=== PATIENT | male | born 1965 | race Caucasian/White ===

== ENCOUNTER 2023-09-28 00:59 | Emergency (ER) | payer SELFPAY ==
[~2023-09-28] VITALS: Ht 177.8 cm; Wt 70.0 kg
[2023-09-28 01:01] VITALS: BP 124/86; TEMP 98.5
[2023-09-28] MEDS ORDERED: IPRATROPIUM BROMIDE (0.02%) 0.5MG/2.5ML NEB HHN STA (01:13)
[2023-09-28] MEDS ORDERED: PREDNISONE 20MG TABLET PO STA (01:13)
[2023-09-28] MEDS ORDERED: ALBUTEROL (0.083%) 2.5MG/3ML NEB HHN STA (01:13)
[2023-09-28 01:49] VITALS: PULSE 112; RESP 22; O2SAT 96
[2023-09-28 02:30] LABS: BASOPHILS % 1.1 % (0.0-2.0); EOSINOPHILS % 12.6 % (0.0-5.0); HEMATOCRIT. 36.8 % (42.0-52.0); HEMOGLOBIN. 12.2 g/dL (14.0-18.0); LYMPHOCYTES % 18.8 % (20.0-50.0); MEAN CORPUSCULAR HGB CONC 33.1 g/dL (31.0-37.0); MEAN CORPUSCULAR VOLUME 84.5 fL (80.0-94.0); MEAN PLATELET VOLUME 7.8 fl (7.4-10.4); MONOCYTES % 9.4 % (2.0-8.0); NEUTROPHILS % 58.1 % (40.0-76.0); PLATELET 337 x1000/uL (130-400); RED BLOOD CELL COUNT 4.35 mill/uL (4.7-6.1); RED CELL DISTRIBUTION WIDTH 15.3 % (11.6-14.6)
[2023-09-28 02:48] LABS: ALANINE AMINOTRANSFERASE 26 IU/L (10-49); ALBUMIN 3.4 g/dL (3.2-4.8); ASPARTATE AMINOTRANSFERASE 27 IU/L (<34); BILIRUBIN TOTAL 0.7 mg/dL (0.1-1.0); CALCIUM 8.2 mg/dL (8.7-10.4); CARBON DIOXIDE 31 mEq/L (21-32); CHLORIDE 105 mEq/L (98-107); CREATININE 0.5 mg/dL (0.6-1.3); GLUCOSE 106 mg/dL (70-105); POTASSIUM 3.8 mEq/L (3.5-5.1); PROTEIN TOTAL 6.7 g/dL (6.0-8.3); SODIUM 137 mEq/L (136-145); TROPONIN I HIGH SENSITIVITY 32 ng/L (3.0-53); UREA NITROGEN BLOOD 11 mg/dL (9-23)
[2023-09-28] MEDS ORDERED: AZITHROMYCIN 500 MG TABLET PO NR (04:45)
[2023-09-28 04:51] LABS: TROPONIN I HIGH SENSITIVITY 35 ng/L (3.0-53)
[2023-09-28] MEDS ORDERED: AZIT250T12 MT (06:01)
[2023-09-28] MEDS ORDERED: P50 MT (06:01)
[2023-09-28] MEDS ORDERED: ALBU6.7H15 INH (06:01)
== END 2023-09-28 06:33 | disposition home or self-care (01) ==
LOC: ER 01:07
DX: J18.9 Pneumonia, unspecified organism (principal); F17.200 Nicotine dependence, unspecified, uncomplicated; Z20.822 Contact with and (suspected) exposure to COVID-19
CPT/HCPCS: 94640; 80053; 83880; 85025; 84484; 87804 ×2; 36415; 71045; 93005; 99285; 87426; Z7610 ×3; J7512; C9803